=== PATIENT | male | born 1970 | race African-American/Black ===

== ENCOUNTER 2017-10-29 09:55 | Emergency (ER) | payer SELFPAY ==
[2017-10-29 10:39] VITALS: BP 127/79
--- NOTE | 2017-10-29 11:20 | UC ---
Skin Complaint HPI - HPI Summary HPI Summary: Pt presents to reporting intermittent and brief over last 2 weeks thinks he feels "something moving" in his pubic hair. Pt has not seen any lice or nits. Pt used OTC lice treatment x2. No erythema, no itching. No dysuria, hematuria. discharge. No lesions. 1 partner - no symptoms. Pt states "it might just be in my head" Pt's medications reviewed this visit. - History of Current Complaint Chief Complaint: UCSkin Time Seen by Provider: 10/29/17 11:17 Stated Complaint: SKIN COMPLAINT Pain Intensity: 0 - Allergy/Home Medications Allergies/Adverse Reactions: Allergies Allergy/AdvReac Type Severity Reaction Status Date / Time No Known Allergies Allergy Verified 10/29/17 10:40 Home Medications: Home Medications Anti Lice Lotion, Shampoo 1 dose TOPICAL SEE INSTRUCTIONS PRN 10/29/17 [History Confirmed 10/29/17] Review of Systems Constitutional: Negative Genitourinary: Other - possible pubic lice All Other Systems Reviewed And Are Negative: Yes PMH/Surg Hx/FS Hx/Imm Hx Previously Healthy: Yes - Surgical History Surgical History: None - Social History Occupation: Employed Full-time Lives: With Family Alcohol Use: None Substance Use Type: None Smoking Status (MU): Never Smoked Tobacco Physical Exam Triage Information Reviewed: Yes Appearance: Well-Appearing, No Pain Distress, Well-Nourished Vital Signs: Initial Vital Signs Temp 98.7 F 10/29/17 10:30 Pulse 84 10/29/17 10:30 Resp 18 10/29/17 10:30 BP 127/79 10/29/17 10:30 Pulse Ox 96 10/29/17 10:30 Eye Exam: Normal ENT: Positive: Hearing grossly normal Neck: Positive: Supple Respiratory: Positive: No respiratory distress, No accessory muscle use Cardiovascular Exam: Normal Cardiovascular: Positive: RRR, No Murmur Abdominal Exam: Normal Abdomen Description: Positive: Nontender, No Organomegaly, Soft Bowel Sounds: Positive: Present Male Genital Exam: Positive: Normal Genitalia, Other - close examination of pubic hair - no lice, nits noted No erythema, irritation no lesions no discharge Neurological Exam: Normal Neurological: Positive: Alert Psychological Exam: Normal Psychological: Positive: Normal Response To Family Skin Exam: Normal Skin: Positive: Other - see genital exam Course/Dx - Course Course Of Treatment: pt states intermittent fleeting sense of movement in pubic hair x 2 weeks. No lice noted. On examination - no cocnerning lesions, nits, lice. will give 1 time treatment if pt does identify. reviewd hygeine, partner therapy. pt comfortable and in agreement with plan - Diagnoses Provider Diagnoses: lice check Discharge - Sign-Out/Discharge Documenting (check all that apply): Discharge - Discharge Plan Condition: Stable Disposition: HOME Prescriptions: Permethrin 1% LOTION* [Nix 1% LOTION*] 1 applic TOPICAL SEE INSTRUCTIONS #1 btl Patient Education Materials: Pubic Lice (ED) Referrals: No Primary Care Phys,NOPCP [Primary Care Provider] - Additional Instructions: The provider that examined you did not identify any lice or nits (eggs) If you identify any lice, okay to use cream as instructed Wash all of your bedding and underclothing in VERY hot water Your sexual partners should also be treated if you identify any organism Contact your doctor or return with questions or concerns - Billing Disposition and Condition Condition: STABLE Disposition: HOME
== END 2017-10-29 11:51 | disposition home or self-care (01) ==
LOC: UCCORT 09:55
DX: Z03.89 Encounter for observation for other suspected diseases and conditions ruled out (principal)
CPT/HCPCS: 99202; G0463